=== PATIENT | female | born 1990 | race Two or more races ===

== ENCOUNTER 2021-06-19 00:01 | Emergency (ER) | payer MEDICAID, OTHER ==
[~2021-06-19] VITALS: Ht 157.5 cm; Wt 70.3 kg
[2021-06-19 00:01] VITALS: BP 128/81
== END 2021-06-19 02:12 | disposition home or self-care (01) ==
LOC: ER 00:01
DX: S09.90XA Unspecified injury of head, initial encounter (principal); F41.9 Anxiety disorder, unspecified; W18.39XA Other fall on same level, initial encounter; Y93.89 Activity, other specified; Y92.89 Other specified places as the place of occurrence of the external cause; Y99.8 Other external cause status
CPT/HCPCS: 70450